=== PATIENT | female | born 1985 | race African-American/Black ===

== ENCOUNTER 2017-12-05 16:02 | Emergency (ER) | payer OTHER ==
[~2017-12-05] VITALS: Ht 160 cm; Wt 77.1 kg
[~2017-12-05 16:02] MED LIST: AMOXICILLIN875 M1 PO; IBUPROFEN600 M1 PO
[2017-12-05 16:50] LABS: ABSOLUTE BASOPHIL COUNT 0 /CUMM (0.0-0.2); ABSOLUTE EOSINOPHIL COUNT 0.1 /CUMM (0.0-0.7); ABSOLUTE GRANULOCYTE CT 2.3 /CUMM (1.4-6.5); ABSOLUTE LYMPH COUNT 0.7 /CUMM (1.2-3.4); ABSOLUTE MONOCYTE COUNT 0.4 /CUMM (0.10-0.60); BASOPHIL % 0.5 % (0.0-2.0); EOSINOPHIL % 3.4 % (0-5); GRANULOCYTE % 66.1 % (42.2-75.2); HEMATOCRIT 34.6 % (37-47); MEAN CORPUSCULAR HGB 28.9 PG (27.0-31.0); MEAN CORPUSCULAR HGB CONC 33.9 G/DL (33.0-37.0); MEAN CORPUSCULAR VOLUME 85.2 FL (81.0-99.0); MEAN PLATELET VOLUME 8.4 FL (7.4-10.4); PLATELET COUNT 258 /CUMM (130-400); RBC DISTRIBUTION WIDTH 12.6 % (11.5-14.5); RED BLOOD CELL CT 4.06 /CUMM (4.20-5.40); WHITE BLOOD CELL COUNT 3.5 /CUMM (4.8-10.8)
--- NOTE | 2017-12-05 20:28 | ED INFLUENZA/URI COMPLAINT ---
History of Present Illness General Chief Complaint: Upper Respiratory Sx/Fever Stated Complaint: CHEST PAIN, FEVER, CLEMENT, BODY ACHES Source: patient Exam Limitations: no limitations Vital Signs & Intake/Output Vital Signs & Intake/Output Vital Signs Date Time Temp Pulse Resp B/P B/P Pulse O2 O2 Flow FiO2 Mean Ox Delivery Rate 12/05 2040 99.9 12/06 2039 Room Air 12/05 2034 99.9 92 18 124/79 96 Room Air ED Intake and Output 12/06 0000 12/05 1200 Intake Total 0 Output Total Balance 0 Intake, Oral 0 Patient 170 lb Weight Weight Reported by Patient Measurement Method Allergies Coded Allergies: No Known Allergies (12/04/17) Reconcile Medications Amoxicillin 875 MG TABLET 1 TAB PO BID otitis media Codeine Phosphate/Guaifenesi (Cheratussin AC Syrup) 10 MG-100 MG/5 ML LIQUID 10 ML PO Q6H PRN COUGH Ibuprofen 600 MG TABLET 1 TAB PO Q6P PRN pain, fever with food Triage Note: PT SEEN HERE YESTERDAY FOR SAME. PT C/O EAR PAIN WITH COLD S/S. PT WAS PRESCRIBED ABX AND MOTRIN FOR HER EAR INFECTION HOWEVER STATES SHE WAS NOT AWARE THAT HER MEDS WERE WAITING FOR HER AT THE [facility] [place]. [facility] CALLED BY THIS NURSE AND CHECKED SCRIPTS ARE WAITING FOR HER. PT WAS TOLD YESTERDAY BY THIS NURSE THAT MEDS HAD BEEN FAXED OVER TO THE PHARMACY. PT STATES SHE WOULD LIKE TO BE SEEN BECAUSE SHE NEEDS A WORK NOTE FOR TOMORROW. FLU TESTED YESTERDAY WILL NOT BE RETESTED. PT GIVEN MOTRIN IN TRIAGE FOR FEVER Triage Nurses Notes Reviewed? yes Onset: Abrupt Duration: day(s): (3), changing over time, continues in ED Timing: single episode today Severity: mild, moderate Severity Numbers: 5 Prior Episodes/Possible Cause: no prior episodes No Modifying Factors: none Associated Symptoms: cough : No Patient currently breastfeeds: No HPI: 32-year-old female with no medical history presents for reevaluation of your pain cough congestion and fever. Patient was seen here yesterday diagnosed with acute otitis media of the right ear. She was prescribed antibiotics and ibuprofen but never picked them up. She states that she spiked a fever today and was not feeling any better so she came back for reevaluation. She reports cough that is present with clear sputum nasal congestion. No nausea vomiting or diarrhea no shortness of breath or chest pain. She does not smoke no history of asthma. She is not taking any medicine for this currently. (Jermaine Genao) Past History Travel History Traveled to [place] past 21 day No Medical History Any Pertinent Medical History? see below for history Neurological: NONE EENT: NONE Cardiovascular: NONE Respiratory: NONE Gastrointestinal: NONE Hepatic: NONE Renal: NONE Musculoskeletal: NONE Psychiatric: NONE Endocrine: NONE Surgical History Surgical History: non-contributory Psychosocial History What is your primary language Setswana Creole Tobacco Use: Never used ETOH Use: denies use Illicit Drug Use: denies illicit drug use Family History Hx Contributory? No (Jermaine Genao) Review of Systems Review of Systems Constitutional: Reports: fever, malaise. EENTM: Reports: ear pain, nasal congestion. Respiratory: Reports: see HPI, cough, sputum production. Cardiovascular: Reports: no symptoms. GI: Reports: no symptoms. Genitourinary: Reports: no symptoms. Musculoskeletal: Reports: no symptoms. Skin: Reports: no symptoms. Neurological/Psychological: Reports: no symptoms. Hematologic/Endocrine: Reports: no symptoms. Immunologic/Allergic: Reports: no symptoms. All Other Systems: Reviewed and Negative (Jermaine Genao) Physical Exam Physical Exam General Appearance: well developed/nourished, no apparent distress, alert, awake Head: atraumatic, normal appearance Eyes: Bilateral: normal appearance, PERRL, EOMI. Ears, Nose, Throat: moist mucous membrane, hearing grossly normal, pharynx normal, nasal congestion, nasal drainage (CLEAR), Tympanic bulging (RT), Tympanic dull (RT) Neck: normal inspection, supple, full range of motion Respiratory: normal breath sounds, chest non-tender, no respiratory distress, lungs clear Cardiovascular: regular rate/rhythm, normal peripheral pulses Peripheral Pulses: 2+ radial (R), 2+ radial (L) Gastrointestinal: normal bowel sounds, soft, non-tender, no organomegaly Back: normal inspection, normal range of motion, no vertebral tenderness Extremities: normal inspection, normal range of motion, no edema Neurologic/Psych: no motor/sensory deficits, awake, alert, oriented x 3, normal gait Skin: intact, normal color, warm/dry Lymphatic: no anterior cervical poly Comments: No mastoid tenderness bilaterally no perforated eardrum the right tympanic membrane is erythematous and bulging Core Measures Sepsis Present: No Sepsis Focused Exam Completed? No (Jermaine Genao) Progress Differential Diagnosis: influenza, otitis, pneumonia, pharyngitis, sinusitis Plan of Care: Laboratory Tests 12/05/17 1639: Anion Gap 10, Estimated GFR > 60, BUN/Creatinine Ratio 10.0, Glucose 91, Calcium 8.5, Total Bilirubin 0.4, AST 17, ALT 23, Alkaline Phosphatase 65, Troponin I < 0.01, Total Protein 7.2, Albumin 3.8, Globulin 3.4, Albumin/Globulin Ratio 1.1, CBC w Diff NO MAN DIFF REQ, RBC 4.06 L, MCV 85.2, MCH 28.9, MCHC 33.9, RDW 12.6 , MPV 8.4, Gran % 66.1, Lymphocytes % 19.3 L, Monocytes % 10.7 H, Eosinophils % 3.4, Basophils % 0.5, Absolute Granulocytes 2.3, Absolute Lymphocytes 0.7 L, Absolute Monocytes 0.4, Absolute Eosinophils 0.1, Absolute Basophils 0 Patient seen and evaluated. She was seen here yesterday diagnosed with acute otitis media never started her meds. She had a low-grade temperature initial evaluation. Which resolved after Motrin. Basic blood work is within normal limits not showing any acute findings. Patient was unable to give a urine sample. She has amoxicillin waiting for her at the pharmacy. Advised her to rest her plenty of fluids start antibiotics as soon as possible continue ibuprofen as needed. She was also given Cheratussin for cough. Follow up with primary care doctor for recheck discussed return precautions patient agrees the plan. Initial ED EKG: normal sinus rhythm, no ST T wave changes (Jermaine Genao) Departure Departure Disposition: HOME OR SELF CARE Condition: Stable Clinical Impression Primary Impression: Otitis media Qualifiers: Otitis media type: unspecified Chronicity: acute Qualified Code: H66.90 - Otitis media, unspecified, unspecified ear Referrals: Se JUDGE,Boy Mcneal (PCP/Family) Additional Instructions: site superintendent YOUr antibiotics AT the pharmacy AND START THEM right away. Alternate Tylenol and ibuprofen every 6 hours as needed for pain/FEVER. Rest and drink plenty of fluids. Cheratussin as needed for cough this may cause drowsiness. MAKE A follow-up appointment with YOUr primary care doctor as soon as possible to review all results of today's visit. Monitor your symptoms return with any concerns. Departure Forms: Customer Survey General Discharge Information Prescriptions: Current Visit Scripts Codeine Phosphate/Guaifenesi (Cheratussin AC Syrup) 10 ML PO Q6H PRN COUGH #240 ML (Jermaine Genao) PA/[employer] Co-Sign Statement Statement: ED Attending supervision documentation- [] I saw and evaluated the patient. I have also reviewed all the pertinent lab results and diagnostic results. I agree with the findings and the plan of care as documented in the PA's/[employer]'s documentation. [X] I have reviewed the ED Record and agree with the PA's/[employer]'s documentation. [] Additions or exceptions (if any) to the PAs/[employer]'s note and plan are summarized below: [] (Navarro Mendoza DO
[2017-12-05] MEDS ORDERED: CHERATUSSIN AC118 M1 PO (20:31)
[2017-12-05 20:35] VITALS: BP 124/79
== END 2017-12-05 20:42 ==
LOC: ERH 16:02
PROVIDERS: Physician Assistant Medical
DX: H66.91 Otitis media, unspecified, right ear (principal)
CPT/HCPCS: 87804; 87804-59; 93005; 93010